=== PATIENT | female | born 1995 | race African-American/Black ===

== ENCOUNTER 2017-05-25 16:18 | Emergency (ER) | payer SELFPAY ==
[~2017-05-25] VITALS: Ht 157.5 cm; Wt 59.1 kg
[~2017-05-25 16:18] MED LIST: CEPHALEXIN500 M1 PO; PRENATAL PO
[2017-05-25 16:29] VITALS: TEMP 96.7
[2017-05-25 17:14] LABS: COLLECTION METHOD CLEAN CATCH
[2017-05-25 17:33] LABS: BASO % 0.4 % (0.0-2.0); EOS # 0.1 (0.0-0.7); EOS % 0.6 % (0-4.0); GRAN # 6.5 (1.4-6.5); GRAN % 68.4 % (42.2-75.2); HEMOGLOBIN 12.6 g/dl (12.5-16.0); LYMPH # 2.2 (1.2-3.4); LYMPH % 23.3 % (20.0-51.0); MEAN CELL VOLUME 85 fl (80.0-100.0); MEAN CORPUSCULAR HEMOGLOBIN 28 pg (27.0-31.0); MEAN CORPUSCULAR HGB CONC 33 g/dl (33.0-37.0); MEAN PLATELET VOLUME 12.6 fl (7.4-10.4); MONO # 0.7 (0.1-0.6); PLATELET COUNT 198 K/mm3 (130-400); RED BLOOD COUNT 4.46 M/mm3 (4.10-5.30); REDCELL DISTRIBUTION WIDTH-CV 11.9 % (11.5-14.5)
[2017-05-25 17:36] LABS: MUCOUS Present /lpf; PH 7 (5-8); SQUAMOUS EPITHELIAL 20-50 /hpf; URINE APPEARANCE Clear; URINE BACTERIA None Seen /hpf; URINE BILIRUBIN Negative (NEGATIVE); URINE BLOOD Negative (NEGATIVE); URINE COLOR Amber; URINE GLUCOSE Negative (NEGATIVE); URINE KETONE 2+ (NEGATIVE); URINE LEUKOCYTE ESTERASE 3+ (NEGATIVE); URINE NITRATE Negative (NEGATIVE); URINE PROTEIN(semi-quant) 1+ (NEGATIVE)
[2017-05-25 17:44] LABS: CALCIUM 9.6 mg/dL (8.4-10.2); CREATININE, serum 0.59 mg/dL (0.52-1.25); POTASSIUM 3.9 mmol/L (3.4-5.0)
[2017-05-25] MEDS ORDERED: PHENERGAN 25 TA25 MG PO (20:49)
[2017-05-25 21:12] VITALS: BP 111/61; PULSE 76
== END 2017-05-25 21:13 | disposition home or self-care (01) ==
LOC: COL.ER 16:18
PROVIDERS: Emergency Medicine
DX: O21.0 Mild hyperemesis gravidarum (principal); Z3A.01 Less than 8 weeks gestation of pregnancy
CPT/HCPCS: J0696; J2550; J7030

== ENCOUNTER 2017-09-28 12:49 | Emergency (ER) | payer MEDICAID ==
[~2017-09-28] VITALS: Ht 157.5 cm; Wt 68.7 kg
[~2017-09-28 12:49] MED LIST changes: +PHENERGAN 25 TA25 MG PO
[2017-09-28 12:54] VITALS: BP 128/57; TEMP 98.7
[2017-09-28 13:26] LABS: COLLECTION METHOD CLEAN CATCH
[2017-09-28 13:36] LABS: BASO % 0.3 % (0.0-2.0); EOS # 0.1 (0.0-0.7); EOS % 0.6 % (0-4.0); GRAN # 8.9 (1.4-6.5); GRAN % 76.7 % (42.2-75.2); HEMATOCRIT 34.3 % (37.0-47.0); HEMOGLOBIN 11.3 g/dl (12.5-16.0); MEAN CELL VOLUME 89 fl (80.0-100.0); MEAN CORPUSCULAR HEMOGLOBIN 29 pg (27.0-31.0); MEAN CORPUSCULAR HGB CONC 33 g/dl (33.0-37.0); MEAN PLATELET VOLUME 13.2 fl (7.4-10.4); MONO # 0.6 (0.1-0.6); MONO % 4.9 % (1.7-9.3); MUCOUS Present /lpf; PH 6 (5-8); PLATELET COUNT 121 K/mm3 (130-400); RED BLOOD COUNT 3.86 M/mm3 (4.10-5.30); REDCELL DISTRIBUTION WIDTH-CV 12.6 % (11.5-14.5); URINE APPEARANCE Cloudy; URINE BACTERIA Rare /hpf; URINE BILIRUBIN Negative (NEGATIVE); URINE BLOOD Negative (NEGATIVE); URINE COLOR Yellow; URINE GLUCOSE Negative (NEGATIVE); URINE KETONE Negative (NEGATIVE); URINE LEUKOCYTE ESTERASE Trace (NEGATIVE); URINE NITRATE Negative (NEGATIVE); URINE PROTEIN(semi-quant) Negative (NEGATIVE); URINE RBC 0-2 /hpf; URINE UROBILINOGEN Negative (NEGATIVE)
[2017-09-28 13:47] LABS: ALANINE AMINOTRANSFERASE 40 U/L (9-52); ALBUMIN 3.8 gm/dL (3.5-5.0); ALKALINE PHOSPHATASE 72 U/L (50-136); ANION GAP 13 mmol/L (7-16); AST,SGOT 41 U/L (15-37); BILIRUBIN,TOTAL 0.3 mg/dL (0.0-1.0); BLOOD UREA NITROGEN 10 mg/dL (7-17); CALCIUM 9.1 mg/dL (8.4-10.2); CARBON DIOXIDE 23 mmol/L (22-30); CHLORIDE 101 mmol/L (98-107); CREATININE, serum 0.53 mg/dL (0.52-1.25); GLUCOSE 82 mg/dL (74-106); POTASSIUM 3.4 mmol/L (3.4-5.0); SODIUM 137 mmol/L (137-145); TOTAL PROTEIN 7.3 gm/dL (6.4-8.2)
[2017-09-28 13:49] LABS: ACETAMINOPHEN < 10 ug/mL (10-30); ALCOHOL(ethanol),MEDICAL < 10 mg/dL; SALICYLATE < 1.0 mg/dL; TRICYCLIC ANTIDEPRESS URINE NEGATIVE
[2017-09-28] MEDS ORDERED: MACROBID 1100 MG/CAP PO (14:22)
[2017-09-28 16:08] VITALS: PULSE 96
== END 2017-09-28 16:09 | disposition home or self-care (01) ==
LOC: COL.ER 12:49
PROVIDERS: Emergency Medicine
DX: O99.341 Other mental disorders complicating pregnancy, first trimester (principal); F32.9 Major depressive disorder, single episode, unspecified; R45.851 Suicidal ideations; Z91.5 Personal history of self-harm; Z3A.01 Less than 8 weeks gestation of pregnancy

== ENCOUNTER 2017-10-09 18:16 | Emergency (ER) | payer MEDICAID ==
[~2017-10-09] VITALS: Ht 154.9 cm; Wt 66.2 kg
[~2017-10-09 18:16] MED LIST changes: +MACROBID 1100 MG/CAP PO
[2017-10-09 18:21] VITALS: BP 119/58; TEMP 98.9
[2017-10-09 20:02] VITALS: PULSE 88
== END 2017-10-09 20:02 | disposition home or self-care (01) ==
LOC: COL.ER 18:16
DX: O9A.212 Injury, poisoning and certain other consequences of external causes complicating pregnancy, second trimester (principal); S62.646A Nondisplaced fracture of proximal phalanx of right little finger, initial encounter for closed fracture; Z3A.15 15 weeks gestation of pregnancy; W22.01XA Walked into wall, initial encounter; Y92.009 Unspecified place in unspecified non-institutional (private) residence as the place of occurrence of the external cause

== ENCOUNTER 2018-01-10 04:42 | Inpatient (IN) | payer MEDICAID ==
[~2018-01-10] VITALS: Ht 154.9 cm; Wt 79.1 kg
[~2018-01-10 04:42] MED LIST changes: -IBU800 M1 PO
[2018-01-10 21:00] VITALS: BP 113/55; PULSE 87; TEMP 98.8
[2018-01-10 21:30] VITALS: BP 116/64; PULSE 82
[2018-01-10 22:00] VITALS: BP 106/52; PULSE 82
[2018-01-10 22:30] VITALS: BP 121/77; PULSE 82
[2018-01-10 23:00] VITALS: BP 123/79; PULSE 88
[2018-01-11] VITALS (50 sets, daily range): BP systolic 93–133; BP diastolic 52–86; PULSE 77–148; TEMP 97.6–98.5
[2018-01-11 02:16] LABS: BASO % 0.3 % (0.0-2.0); EOS % 0.4 % (0-4.0); GRAN # 8.4 (1.4-6.5); GRAN % 73.7 % (42.2-75.2); HEMOGLOBIN 11.5 g/dl (12.5-16.0); LYMPH % 17.8 % (20.0-51.0); MEAN CELL VOLUME 87 fl (80.0-100.0); MEAN CORPUSCULAR HEMOGLOBIN 29 pg (27.0-31.0); MEAN CORPUSCULAR HGB CONC 33 g/dl (33.0-37.0); MONO # 0.8 (0.1-0.6); MONO % 7.1 % (1.7-9.3); PLATELET COUNT 138 K/mm3 (130-400); RED BLOOD COUNT 3.98 M/mm3 (4.10-5.30); REDCELL DISTRIBUTION WIDTH-CV 13.2 % (11.5-14.5)
[2018-01-11 02:20] LABS: HEMATOCRIT 34.8 % (37.0-47.0)
[2018-01-11 02:51] LABS: TRICYCLIC ANTIDEPRESS URINE NEGATIVE
[2018-01-12 01:00] VITALS: BP 124/64; PULSE 96; TEMP 98.5
[2018-01-12 07:00] VITALS: BP 132/69; PULSE 81; TEMP 97.6
[2018-01-12] MEDS ORDERED: IBU800 M1 PO (08:31)
[2018-01-12 16:07] VITALS: BP 112/64; PULSE 72; TEMP 97.8
[2018-01-12 19:05] VITALS: BP 115/98; PULSE 90; TEMP 98.6
[2018-01-13 07:55] VITALS: BP 130/78; PULSE 78; TEMP 98.5
== END 2018-01-13 20:47 | disposition home or self-care (01) | DRG 806 ==
LOC: LDRO 04:42 → LDR 22:00 → OB 01-11 16:22
PROVIDERS: Obstetrics & Gynecology
PROC: 10E0XZZ Delivery of Products of Conception, External Approach (ICD-10-PCS; principal; 2018-01-11)
PROC: 0UQGXZZ Repair Vagina, External Approach (ICD-10-PCS; 2018-01-11)
PROC: 10907ZC Drainage of Amniotic Fluid, Therapeutic from Products of Conception, Via Natural or Artificial Opening (ICD-10-PCS; 2018-01-11)
DX: O76 Abnormality in fetal heart rate and rhythm complicating labor and delivery (principal); O63.9 Long labor, unspecified; Z37.0 Single live birth; O71.4 Obstetric high vaginal laceration alone; O99.12 Other diseases of the blood and blood-forming organs and certain disorders involving the immune mechanism complicating childbirth; R45.851 Suicidal ideations; Z3A.39 39 weeks gestation of pregnancy; D69.6 Thrombocytopenia, unspecified; O99.344 Other mental disorders complicating childbirth; F32.9 Major depressive disorder, single episode, unspecified; O99.02 Anemia complicating childbirth; O36.5930 Maternal care for other known or suspected poor fetal growth, third trimester, not applicable or unspecified
CPT/HCPCS: J2270; J2590; J2795; J7120

== ENCOUNTER → 2018-01-10 | Outpatient (CLI) | payer MEDICAID ==
[~2018-01-10] MED LIST changes: +IBU800 M1 PO
== END ==
LOC: LDRO 21:05
DX: Z01.89 Encounter for other specified special examinations (principal); Z53.9 Procedure and treatment not carried out, unspecified reason

== ENCOUNTER 2018-05-11 15:46 | Emergency (ER) | payer SELFPAY ==
[~2018-05-11] VITALS: Ht 157.5 cm; Wt 64.8 kg
[~2018-05-11 15:46] MED LIST changes: +IBU800 M1 PO
[2018-05-11 15:52] VITALS: BP 127/91; TEMP 97.6
[2018-05-11] MEDS ORDERED: MAGIC MOUTH PO (16:48)
[2018-05-11 17:00] VITALS: PULSE 67
== END 2018-05-11 17:00 | disposition home or self-care (01) ==
LOC: COL.ER 15:46
DX: J02.9 Acute pharyngitis, unspecified (principal); F17.210 Nicotine dependence, cigarettes, uncomplicated

== ENCOUNTER 2018-12-16 12:52 | Emergency (ER) | payer SELFPAY ==
[~2018-12-16] VITALS: Ht 157.5 cm; Wt 63.6 kg
[~2018-12-16 12:52] MED LIST changes: +MAGIC MOUTH PO
[2018-12-16 12:55] VITALS: TEMP 98.7
[2018-12-16] MEDS ORDERED: CEPHALEXIN500 M1 PO (13:57)
[2018-12-16 14:08] VITALS: BP 113/55; PULSE 69
== END 2018-12-16 14:20 | disposition home or self-care (01) ==
LOC: COL.ER 12:52
DX: M70.42 Prepatellar bursitis, left knee (principal); F17.210 Nicotine dependence, cigarettes, uncomplicated

== ENCOUNTER 2020-01-25 12:48 | Emergency (ER) | payer MEDICAID ==
[~2020-01-25] VITALS: Ht 157.5 cm; Wt 78.2 kg
[2020-01-25 13:03] VITALS: BP 113/76; TEMP 98.7
[2020-01-25 14:23] LABS: STREP SCREEN NEGATIVE
[2020-01-25 15:41] VITALS: PULSE 92
== END 2020-01-25 15:41 | disposition home or self-care (01) ==
LOC: COL.ER 12:48
PROVIDERS: Physician Assistant
DX: J06.9 Acute upper respiratory infection, unspecified (principal); Z20.828 Contact with and (suspected) exposure to other viral communicable diseases

== ENCOUNTER → 2020-02-28 | Outpatient (CLI) | payer MEDICAID ==
[~2020-02-28] MED LIST changes: +PERCOCET 325 MG1 TA2 PO; +PREDNISONE10 MG PO
== END ==
LOC: ZCOL.LAB 08:23
DX: Z20.828 Contact with and (suspected) exposure to other viral communicable diseases (principal)

== ENCOUNTER 2020-03-04 07:02 | Inpatient (IN) | payer MEDICAID ==
[~2020-03-04] VITALS: Ht 157.5 cm; Wt 81.4 kg
[2020-03-04] VITALS (33 sets, daily range): BP systolic 92–149; BP diastolic 51–84; PULSE 64–130; TEMP 97.4–98.4
[~2020-03-04 07:02] MED LIST changes: -PERCOCET 325 MG1 TA2 PO; -PREDNISONE10 MG PO
--- NOTE | 2020-03-04 07:10 | NUR ---
Patient ambulatory to LR6 with significant other, changed into gown, FHR/TOCO monitors placed and explained. Patient denies any regular contractions/leaking of fluid/vaginal bleeding/decreased movement. Plan of care discussed. 0730: IV started in left hand, blood obtained and to lab, LR infusing. Assessment completed/consents signed/ packet given. FHR tracing minimal variability on admission. Patient right lateral and patient given cranberry juice. FHR beginning to trace moderate variability. 0920: Dr. Cochran at bedside assessing patient and FHR strip. 0925: SVE 4-5/90/-2 and AROM at this time with clear fluid. Patient updated on plan of care.
[2020-03-04 08:02] LABS: BASO % 0.4 % (0.0-2.0); EOS # 0.1 (0.0-0.7); EOS % 1.1 % (0-4.0); GRAN # 6.1 (1.4-6.5); GRAN % 59.8 % (42.2-75.2); LYMPH % 29.7 % (20.0-51.0); MEAN CELL VOLUME 88 fl (80.0-100.0); MEAN CORPUSCULAR HEMOGLOBIN 29 pg (27.0-31.0); MEAN CORPUSCULAR HGB CONC 33 g/dl (33.0-37.0); MONO # 0.8 (0.1-0.6); PLATELET COUNT 121 K/mm3 (130-400); RED BLOOD COUNT 4.18 M/mm3 (4.10-5.30); REDCELL DISTRIBUTION WIDTH-CV 13.3 % (11.5-14.5)
[2020-03-04 08:07] LABS: HEMATOCRIT 36.8 % (37.0-47.0)
[2020-03-04] MEDS ORDERED: PREDNISONE10 MG PO (08:31)
--- NOTE | 2020-03-04 10:10 | NUR ---
Patient stading at edge of bed and difficulty tracing FHR due to maternal position, this RN at bedside adjusting monitor. 1020: Patient requests epidural and T.Lowman RADIO MECHANIC HELPER notified. 1030: Difficulty tracing FHR due to patient standing and leaning on bed. This RN adjusting monitor. Patient sitting on bed for placement of epidural and T.Lowman RADIO MECHANIC HELPER at bedside. Difficulty tracing FHR due to maternal position. 1049: Test dose and patient tolerates well. 1058: Patient repositioned and plan of care/safety precautions discussed. 1102: Dr. Cochran at bedside and SVE per physician /.
--- NOTE | 2020-03-04 11:35 | NUR ---
Miller catheter placed and amniotic like fluid noted. Miller catheter removed. New miller catheter placed and no urine return noted. SVE-7/90/0 and miller bulb felt with exam. Will continue to monitor. Patient right lateral with left leg resting in stirrup. 1209: Diffculty tracing and this RN at bedside adjusting monitor. 1210: FHR decreasing to 80-120bpm for 7 minutes. SVE-9/100/0 Patient was turned right lateral. Pitocin off. Patient left lateral and miller catheter removed. 1215: Dr. Cochran called and notified and on her way. Patient in knees/chest position and FHR returning to 135-140bpm. 1230: FHR tracing recurrent variable declerations. Dr. Cochran at bedside and SVE-9/100/0 and straight catherized at this time and 50cc obtained. Patient right lateral with left leg resting in stirrup.
--- NOTE | 2020-03-04 12:50 | NUR ---
FHR tracing recurrent variable decelerations. Dr. Cochran at bedside and orders to start pitocin at 6mU/hr at this time. 1305: SVE per physician 100/0 and patient sitting in erin position. 1330: SVE per physician 100/0. 1348: This RN at bedside and patient practice pushing at this time. 1350: SVE-100/+[address] Cochran updated and at bedside. Patient prepped for vaginal delivery and bed taken apart. FHR tracing 115-120bpm. Patient begins to push per Dr. Houser orders. Difficulty tracing FHR due to patient pushing. 1407: Spontaneous vaginal delivery of viable male-head followed by body. Infant bulb syringed and to patient abdomen. Muna RN assumes care of infant. Cord clamped by physician and cut by FOB. Cord blood obtained. 1410: Patient straight catherized. 1412: Spontaneous delivery of placenta and pitocin started at 333mU/hr. Fundal massage done/firm/bleeding WNL. Patient repositioned and ice pack to perineum. Plan of care discussed.
--- NOTE | 2020-03-04 16:20 | NUR ---
Patient to bathroom via wheelchair assisted to toilet. Unable to void. Pericare done and new gown/pad/underwear on. Patient to new room and oriented to . Plan of care discussed.
--- NOTE | 2020-03-04 18:30 | NUR ---
Report received from Kj PENALOZA. Pt sitting up in bed. Bladder scan completed and 500mls noted on scan. Pt states she feels like she needs to void at this time. Pt nursing so going to attempt after completed nursing. 1899: Pt called out stating she was completed. Pt assisted to restroom 2 person assist and able to void. Pt states she feels like her bladder is getting empty with void. 1929: on unit and updated on pts status.
[2020-03-05] VITALS: BP 110/52; PULSE 80; TEMP 98
[2020-03-05 04:15] VITALS: BP 102/54; PULSE 81; TEMP 97.8
[2020-03-05 08:08] VITALS: BP 128/70; PULSE 89; TEMP 98.2
--- NOTE | 2020-03-05 09:24 | NUR ---
Initial visit; Patient thanked Cutting Supervisor for offering congratulations and God's blessings for the of her son. Cutting Supervisor thanked mom for choosing [facility].
[2020-03-05 09:45] LABS: MEAN CELL VOLUME 89 fl (80.0-100.0); MEAN CORPUSCULAR HGB CONC 32 g/dl (33.0-37.0); MEAN PLATELET VOLUME 14.2 fl (7.4-10.4); PLATELET COUNT 86 K/mm3 (130-400); RED BLOOD COUNT 3.45 M/mm3 (4.10-5.30); REDCELL DISTRIBUTION WIDTH-CV 13.2 % (11.5-14.5)
[2020-03-05 09:48] LABS: HEMATOCRIT 30.6 % (37.0-47.0); HEMOGLOBIN 9.9 g/dl (12.5-16.0); MEAN CORPUSCULAR HEMOGLOBIN 29 pg (27.0-31.0)
[2020-03-05 13:08] VITALS: BP 119/79; PULSE 85; TEMP 98.3
[2020-03-05 16:10] VITALS: BP 108/59; PULSE 79; TEMP 98.1
[2020-03-05 20:30] VITALS: BP 117/61; PULSE 91; TEMP 98
[2020-03-06] MEDS ORDERED: IBU800 M1 PO (08:28)
[2020-03-06] MEDS ORDERED: PERCOCET 325 MG1 TA2 PO (08:28)
[2020-03-06 08:30] VITALS: BP 118/59; PULSE 78; TEMP 98.1
[2020-03-06 09:46] LABS: MEAN CELL VOLUME 90 fl (80.0-100.0); MEAN CORPUSCULAR HGB CONC 31 g/dl (33.0-37.0); PLATELET COUNT 105 K/mm3 (130-400); REDCELL DISTRIBUTION WIDTH-CV 13.3 % (11.5-14.5)
[2020-03-06 09:55] LABS: HEMATOCRIT 31.6 % (37.0-47.0); HEMOGLOBIN 9.8 g/dl (12.5-16.0); MEAN CORPUSCULAR HEMOGLOBIN 28 pg (27.0-31.0)
--- NOTE | 2020-03-06 15:08 | NUR ---
1440 DISCHARGE INSTRUCTIONS REVIEWED WITH PATIENT. PATIENT VERBALIZED UNDERSTANDING. 1450 ALL PERSONAL BELONGINGS GATHERED FROM PATIENT ROOM. PATIENT LEFT AMBULATORY AND IN NO APPARENT DISTRESS. PATIENT ACCOMPANIED BY SIGNIFICANT OTHER AND THIS RN.
== END 2020-03-06 14:50 | disposition home or self-care (01) | DRG 806 ==
LOC: LDR 07:02 → OB 07:02
PROVIDERS: ADMIT Student in an Organized Health Care Education/Training Program
PROC: 10E0XZZ Delivery of Products of Conception, External Approach (ICD-10-PCS; principal; 2020-03-04)
PROC: 10907ZC Drainage of Amniotic Fluid, Therapeutic from Products of Conception, Via Natural or Artificial Opening (ICD-10-PCS; 2020-03-04)
PROC: 3E033VJ Introduction of Other Hormone into Peripheral Vein, Percutaneous Approach (ICD-10-PCS; 2020-03-04)
DX: O48.0 Post-term pregnancy (principal); O99.12 Other diseases of the blood and blood-forming organs and certain disorders involving the immune mechanism complicating childbirth; Z37.0 Single live birth; Z3A.40 40 weeks gestation of pregnancy; O99.344 Other mental disorders complicating childbirth; F32.9 Major depressive disorder, single episode, unspecified
CPT/HCPCS: J2210; J2590; J7120

== ENCOUNTER 2020-05-17 12:46 | Emergency (ER) | payer MEDICAID ==
[~2020-05-17] VITALS: Ht 157.5 cm; Wt 63.6 kg
[~2020-05-17 12:46] MED LIST changes: +PERCOCET 325 MG1 TA2 PO; +PREDNISONE10 MG PO
[2020-05-17 13:56] LABS: COLLECTION METHOD CLEAN CATCH
[2020-05-17 14:02] LABS: BASO % 0.6 % (0.0-2.0); EOS % 0.8 % (0-4.0); GRAN # 3.1 (1.4-6.5); GRAN % 61.4 % (42.2-75.2); HEMOGLOBIN 11.7 g/dl (12.5-16.0); LYMPH # 1.5 (1.2-3.4); LYMPH % 29.1 % (20.0-51.0); MEAN CELL VOLUME 83 fl (80.0-100.0); MEAN CORPUSCULAR HEMOGLOBIN 27 pg (27.0-31.0); MEAN CORPUSCULAR HGB CONC 32 g/dl (33.0-37.0); MONO # 0.4 (0.1-0.6); MONO % 8.1 % (1.7-9.3); PLATELET COUNT 152 K/mm3 (130-400); RED BLOOD COUNT 4.42 M/mm3 (4.10-5.30); REDCELL DISTRIBUTION WIDTH-CV 14.5 % (11.5-14.5)
[2020-05-17 14:04] LABS: HEMATOCRIT 36.6 % (37.0-47.0)
[2020-05-17 14:07] LABS: MUCOUS Present /lpf; PH 7 (5-8); URINE APPEARANCE Hazy; URINE BILIRUBIN Negative (NEGATIVE); URINE BLOOD Negative (NEGATIVE); URINE COLOR Yellow; URINE GLUCOSE Negative (NEGATIVE); URINE KETONE Negative (NEGATIVE); URINE LEUKOCYTE ESTERASE 2+ (NEGATIVE); URINE NITRATE Negative (NEGATIVE); URINE PROTEIN(semi-quant) Negative (NEGATIVE); URINE RBC 0-2 /hpf; URINE UROBILINOGEN Negative (NEGATIVE)
[2020-05-17 14:13] LABS: ALANINE AMINOTRANSFERASE 25 U/L (4-34); ALBUMIN 4.8 gm/dL (3.5-5.0); ALKALINE PHOSPHATASE 53 U/L (50-136); ANION GAP 10 mmol/L (7-16); AST,SGOT 33 U/L (15-37); BILIRUBIN,TOTAL 0.6 mg/dL (0.0-1.0); BLOOD UREA NITROGEN 9 mg/dL (7-17); CALCIUM 9.6 mg/dL (8.4-10.2); CARBON DIOXIDE 22 mmol/L (22-30); CHLORIDE 107 mmol/L (98-107); GLUCOSE 92 mg/dL (74-106); POTASSIUM 3.4 mmol/L (3.4-5.0); SODIUM 140 mmol/L (137-145); TOTAL PROTEIN 7.8 gm/dL (6.4-8.2)
[2020-05-17 14:15] LABS: ACETAMINOPHEN < 10 ug/mL (10-30); ALCOHOL(ethanol),MEDICAL < 10 mg/dL; SALICYLATE < 1.0 mg/dL
[2020-05-17 14:17] LABS: TRICYCLIC ANTIDEPRESS URINE NEGATIVE
[2020-05-17 14:18] LABS: URINE BACTERIA Rare /hpf
[2020-05-17] MEDS ORDERED: CEPHALEXIN500 M1 PO (16:30)
[2020-05-17 16:56] VITALS: BP 134/67; PULSE 84; TEMP 97.2
== END 2020-05-17 16:47 | disposition home or self-care (01) ==
LOC: COL.ER 12:46
PROVIDERS: Emergency Medicine
DX: R45.851 Suicidal ideations (principal); F32.9 Major depressive disorder, single episode, unspecified; F17.210 Nicotine dependence, cigarettes, uncomplicated

== ENCOUNTER 2020-11-15 10:15 | Emergency (ER) | payer MEDICAID ==
[~2020-11-15] VITALS: Ht 157.5 cm; Wt 63.6 kg
[2020-11-15 10:41] VITALS: BP 131/73; TEMP 98.4
[2020-11-15 12:24] VITALS: PULSE 87
== END 2020-11-15 12:24 | disposition home or self-care (01) ==
LOC: COL.ER 10:15
DX: O21.9 Vomiting of pregnancy, unspecified (principal); Z3A.00 Weeks of gestation of pregnancy not specified; Z87.891 Personal history of nicotine dependence
CPT/HCPCS: J2550